=== PATIENT | female | born 1980 | race Caucasian/White ===

== ENCOUNTER 2018-12-27 15:09 | Emergency (ER) | payer MEDICAID ==
[2018-12-27 15:23] VITALS: BP 127/80
[2018-12-27] MEDS ORDERED: ACETAMINOPHEN 325 MG TABLET PO ONE (16:13)
--- NOTE | 2018-12-27 16:14 | ER Document Report ---
HPI - HPI Time Seen by Provider: 12/27/18 16:04 Pain Level: 5 Context: Patient is a 38-year-old female who presents the emergency department with left knee pain. She was seen by Yen Padilla earlier this week for the same issue. X-rays were done and there were no fractures at that time. Denies any trauma. She was placed on diclofenac by Winnsukumar Padilla. She has an appointment to see her orthopedic doctor on Saturday, but states that she continues to have pain. She also states that she ran out of her diclofenac. Her pain is primarily on the medial aspect of her left knee. She states that she has been walking up stairs for the past 3 months, which is new. - ROS Systems Reviewed and Negative: Yes All other systems reviewed and negative - CONSTITUTIONAL Constitutional: DENIES: Fever, Chills - EENT EENT: DENIES: Sore Throat - NEURO Neurology: DENIES: Headache, Weakness, Vision blurred - CARDIOVASCULAR Cardiovascular: DENIES: Chest pain - RESPIRATORY Respiratory: DENIES: Coughing - REPRODUCTIVE Reproductive: DENIES: : - MUSCULOSKELETAL Musculoskeletal: REPORTS: Extremity pain - Medial left knee. DENIES: Back Pain, Neck Pain, Swelling - DERM Skin Color: Normal Skin Problems: None Past Medical History - Social History Smoking Status: Unknown if Ever Smoked Family History: Reviewed & Not Pertinent Neurological Medical History: Reports: Hx Migraine Renal/ Medical History: Denies: Hx Peritoneal Dialysis - Immunizations Immunizations up to date: Yes Vertical Provider Document - CONSTITUTIONAL Agree With Documented VS: Yes Exam Limitations: No Limitations General Appearance: No Apparent Distress - INFECTION CONTROL TRAVEL OUTSIDE OF THE [place] IN LAST 30 DAYS: No - HEENT HEENT: Atraumatic, Normocephalic, PERRLA - NECK Neck: Normal Inspection - RESPIRATORY Respiratory: No Respiratory Distress - CARDIOVASCULAR Cardiovascular: Regular Rate Pulses: Normal: Radial, Posterior tibial, Dorsalis pedis - MUSCULOSKELETAL/EXTREMETIES Musculoskeletal/Extremeties: Tender - Medial left knee, No Edema. negative: Eccymosis - NEURO Level of Consciousness: Awake, Alert, Appropriate Motor/Sensory: No Motor Deficit, No Sensory Deficit Deep Tendon Reflexes: 2+ - DERM Integumentary: Warm, Dry, No Rash Course - Re-evaluation Re-evalutation: 12/27/18 16:17 Unfortunately, the patient is unable to stay because her needs to be seen for his alcoholism in [facility], therefore the patient has to leave. She did not have her x-rays done. She is leaving AGAINST MEDICAL ADVICE. I discussed the risks and benefits of leaving. She is not able to stay for the paperwork, nor did the patient sign the AGAINST MEDICAL ADVICE paperwork. I advised her that she needs to keep her appointment with orthopedics on Saturday. - Vital Signs Vital signs: Temp Pulse Resp BP Pulse Ox 98.0 F 94 16 127/80 H 99 12/27/18 15:21 12/27/18 15:21 12/27/18 15:21 12/27/18 15:21 12/27/18 15:21 Discharge - Discharge Clinical Impression: Left knee pain Qualifiers: Chronicity: acute Qualified Code(s): M25.562 - Pain in left knee Condition: Stable Disposition: AGAINST MEDICAL ADVICE Instructions: Ice & Elevation ([facility]) Additional Instructions: You were seen today in the emergency department for left knee pain. You were leaving AGAINST MEDICAL ADVICE. Possibility you could , your injury may not get better, or you may further your injury. Please follow-up with your orthopedic doctor. Referrals: GERMAN GTZ FNP [Primary Care Provider] - Follow up as needed
== END 2018-12-27 16:18 | disposition left against medical advice (07) ==
LOC: ER 15:09
DX: M25.562 Pain in left knee (principal); T39.396A Underdosing of other nonsteroidal anti-inflammatory drugs [NSAID], initial encounter; Z91.128 Patient's intentional underdosing of medication regimen for other reason; Z91.14 Patient's other noncompliance with medication regimen; Z53.29 Procedure and treatment not carried out because of patient's decision for other reasons
CPT/HCPCS: 99283